=== PATIENT | female | born 1995 | race African-American/Black ===

== ENCOUNTER 2021-06-14 17:43 | Emergency (ER) | payer SELFPAY ==
[~2021-06-14] VITALS: Ht 157.5 cm; Wt 75.0 kg
[2021-06-14] MEDS ORDERED: SODIUM CHLORIDE 0.9% 1,000 ML IV ONE (23:15)
[2021-06-14 23:55] LABS: BASOPHILS % 0.5 % (0.0-2.0); EOSINOPHILS % 2.7 % (0.0-5.0); HEMATOCRIT. 36.5 % (36.0-48.0); HEMOGLOBIN. 12.4 g/dL (12.0-16.0); LYMPHOCYTES % 35.3 % (20.0-50.0); MEAN CORPUSCULAR HEMOGLOBIN 30.3 pg (28.0-32.0); MEAN CORPUSCULAR VOLUME 89.2 fL (81.0-99.0); MEAN PLATELET VOLUME 9.7 fl (7.4-10.4); MONOCYTES % 6.2 % (2.0-8.0); NEUTROPHILS % 55.3 % (40.0-76.0); PLATELET 192 x1000/uL (130-400); RED BLOOD CELL COUNT 4.09 mill/uL (4.2-5.4); RED CELL DISTRIBUTION WIDTH 12.4 % (11.6-14.6)
[2021-06-15 00:06] LABS: CHLORIDE 107 mEq/L (98-107)
[2021-06-15 00:50] LABS: CLARITY URINE CLEAR (CLEAR); COLOR URINE YELLOW (YELLOW); KETONES URINE NEGATIVE (NEGATIVE); LEUKOCYTE ESTERASE URINE NEGATIVE (NEGATIVE); NITRITE URINE NEGATIVE (NEGATIVE); OCCULT BLOOD URINE NEGATIVE (NEGATIVE); PROTEIN URINE NEGATIVE (NEGATIVE); SPECIFIC GRAVITY URINE 1.029 (1.005-1.030)
[2021-06-15 00:52] VITALS: BP 129/68
== END 2021-06-15 04:58 | disposition home or self-care (01) ==
LOC: ER 17:43
DX: R55 Syncope and collapse (principal); R79.1 Abnormal coagulation profile; D64.9 Anemia, unspecified; N92.0 Excessive and frequent menstruation with regular cycle
CPT/HCPCS: 36415; 71045; 71275; 80053; 81003; 81025; 83880; 84484; 85025; 85379; 93005; 96360; 99285; J7030